=== PATIENT | female | born 1960 | race Caucasian/White ===

== ENCOUNTER 2018-06-13 18:32 | Emergency (ER) | payer MEDICARE ==
[~2018-06-13] VITALS: Ht 167.6 cm; Wt 59.0 kg
[2018-06-13 18:32] VITALS: BP 111/71
[2018-06-13] MEDS ORDERED: HYDROCODONE/APAP 5/325MG 1 EACH TABLET PO ONE (19:00)
[2018-06-13] MEDS ORDERED: HYDROCODONE/APAP 5/325MG 1 EACH TABLET ONE (19:19)
[2018-06-14] MEDS ORDERED: LEVO25TA9 PO (10:24)
[2018-06-14] MEDS ORDERED: GABA-536 PO (10:24)
[2018-06-14] MEDS ORDERED: CLON0.5T12 PO (10:24)
[2018-06-14] MEDS ORDERED: ALBU18HF2 IH (10:24)
[2018-06-14] MEDS ORDERED: BUPR-51 PO (10:24)
[2018-06-14] MEDS ORDERED: BUPR8TAB4 SL (18:59)
== END 2018-06-13 19:53 | disposition home or self-care (01) ==
LOC: ER 18:35
DX: M54.5 Low back pain (principal); Z76.5 Malingerer [conscious simulation]; F31.9 Bipolar disorder, unspecified; E03.9 Hypothyroidism, unspecified; F43.10 Post-traumatic stress disorder, unspecified
CPT/HCPCS: 72131; 99284; A4606; Z7610

== ENCOUNTER 2018-06-13 22:23 | Emergency (ER) | payer MEDICARE ==
[~2018-06-13] VITALS: Ht 167.6 cm; Wt 59.0 kg
--- NOTE | 2018-06-13 22:23 | NUR ---
BBSELF C/C CHRONIC BACK PAIN. PT WALKED WITH STEADY GAIT NOTED TO ER BED 4. PT IS WITH ASSISTED LIVING DIRECTOR STATING "MY BACK PAIN CAUSES SEIZURES" AND "I WAS MISTREATED AND WANT TO BE ABLE TO WALK AGAIN. I AM HOMELESS WITH NO WHERE TO GO". VSS NO ACUTE DISTRESS AT THIS TIME. PT IS NOTED ANXIOUS AND EMOITIONAL. BREATHING PATTERN IS WNL WITH ADEQUATE CHEST RISE/FALL. SKIN WARM AND INTACT. WILL CONTINUE TO MONITOR FOR ANY CHANGES DURING THE SHIFT.
--- NOTE | 2018-06-13 22:24 | NUR ---
ER TEVIN STEWART AT BEDSIDE FOR EVAL
[2018-06-14] MEDS ORDERED: KETOROLAC TROMETHAMINE INJ 30 MG/ML VIAL ONE
[2018-06-14] MEDS ORDERED: LORAZEPAM 1 MG TABLET ONE
[2018-06-14] MEDS ORDERED: KETOROLAC TROMETHAMINE INJ 60 MG/2 ML VIAL IM ONE
[2018-06-14] MEDS ORDERED: LORAZEPAM 1 MG TABLET PO ONE ×2
[2018-06-14] MEDS ORDERED: HYDROCODONE/APAP 5/325MG 1 EACH TABLET ONE
[2018-06-14] MEDS ORDERED: HYDROCODONE/APAP 5/325MG 1 EACH TABLET PO ONE
--- NOTE | 2018-06-14 00:29 | NUR ---
PATIENT GIVEN D/C INSTRUCTIONS AND PATIENT AGEED WITH CARE. HELPED PATIENT BRING ALL BELONGINGS TO THE WAITING ROOM
[2018-06-14 00:30] VITALS: BP 139/74
--- NOTE | 2018-06-14 09:41 | NUR ---
Social service consult requested by security at [facility] stating pt. has been sitting with her luggage in the ED since late last night. SW met with pt. in the EED waiting room. Pt. is a 57 year old who recently moved from [place] to live with a friend. Pt. is unable to live with the friend and is homeless. Pt. is looking for placement. Pt. has a psychiatric diagnosis of Bipolar and was taking medication but has not been taking them. Pt. wants medical stabilization and wants voluntary admission to [facility]. Pt. was assessed by director specialty Alondra Camacho as well.
[2018-06-14] MEDS ORDERED: LEVO25TA9 PO (10:24)
[2018-06-14] MEDS ORDERED: BUPR-51 PO (10:24)
[2018-06-14] MEDS ORDERED: GABA-536 PO (10:24)
[2018-06-14] MEDS ORDERED: CLON0.5T12 PO (10:24)
[2018-06-14] MEDS ORDERED: ALBU18HF2 IH (10:24)
[2018-06-14] MEDS ORDERED: BUPR8TAB4 SL (18:59)
== END 2018-06-14 00:30 | disposition home or self-care (01) ==
LOC: ER 22:26
DX: M54.5 Low back pain (principal); E03.9 Hypothyroidism, unspecified; G89.29 Other chronic pain; F31.9 Bipolar disorder, unspecified; F43.10 Post-traumatic stress disorder, unspecified
CPT/HCPCS: A4606; J1885; Z7610

== ENCOUNTER 2018-06-14 09:41 | Inpatient (IN) | payer MEDICARE ==
[~2018-06-14] VITALS: Ht 167.6 cm; Wt 59.0 kg
--- NOTE | 2018-06-14 09:50 | NUR ---
KAMRAN DURON TRESTLE MAINTERNANCE LABORER FO MEDICAL CLEARANCE PRIOR TO [facility] ADMISSION. NAD NOTED. VSS. SEEN BY MD FOR EVAL. SAFETY AND COMFORT MEASURES PROVIDED. WILL MONITOR.
[2018-06-14 09:55] LABS: BASOPHILS # (AUTO) 0.1 /CMM (0.0-0.2); BASOPHILS % (AUTO) 0.8 % (0.0-2.0); EOSINOPHILS % (AUTO) 0.4 % (0.0-6.0); HEMATOCRIT 41 % (33-45); HEMOGLOBIN 13.8 g/dL (11.5-14.8); LYMPHOCYTES # (AUTO) 1.2 /CMM (0.8-4.8); MEAN CORPUSCULAR HEMOGLOBIN 30 PG (26.0-33.0); MEAN CORPUSCULAR HGB CONC 33 g/dl (31.0-36.0); MEAN CORPUSCULAR VOLUME 88 fL (82-100); MONOCYTES # (AUTO) 0.3 /CMM (0.1-1.30); MONOCYTES % (AUTO) 3.5 % (2.0-12.0); NEUTROPHILS # (AUTO) 7.4 /CMM (1.8-8.9); NEUTROPHILS % (AUTO) 82.3 % (43.0-81.0); PLATELET COUNT (AUTO) 272 /CMM (150-450); RDW COEFFICIENT OF VARIATION 12.8 (11.5-15.0); RED BLOOD CELL COUNT(AUTO) 4.69 MIL/uL (4.0-5.2)
[2018-06-14 10:04] LABS: CALCIUM, SERUM 8.6 mg/dL (8.5-10.1); CREATININE 0.8 mg/dL (0.6-1.3)
[2018-06-14] MEDS ORDERED: GABA-536 PO (10:24)
[2018-06-14] MEDS ORDERED: BUPR-51 PO (10:24)
[2018-06-14] MEDS ORDERED: ALBU18HF2 IH (10:24)
[2018-06-14] MEDS ORDERED: CLON0.5T12 PO (10:24)
[2018-06-14] MEDS ORDERED: LEVO25TA9 PO (10:24)
[2018-06-14] MEDS ORDERED: POTASSIUM CHLORIDE 20 MEQ TAB.PRT.SR PO ONE ×2 (10:29→10:30)
[2018-06-14] MEDS ORDERED: ACETAMINOPHEN 325 MG TABLET PO PRN (12:00)
[2018-06-14] MEDS ORDERED: MAG HYDROX/AL HYDROX/SIMETH 30 ML UDC PO PRN (12:00)
[2018-06-14] MEDS ORDERED: TEMAZEPAM 7.5 MG CAPSULE PO PRN (12:00)
[2018-06-14] MEDS ORDERED: MAGNESIUM HYDROXIDE 30 ML UDC PO PRN (12:00)
[2018-06-14] MEDS: clonazePAM 0.5 MG TABLET PO PRN ×2 (12:15→17:50)
[2018-06-14 13:17] VITALS: BP 116/70
[2018-06-14 16:00] VITALS: BP 126/75
--- NOTE | 2018-06-14 16:24 | NUR ---
[facility]/RN-NOTES ADMITTED 57 YEARS OLD VOLUNTARY FEMALE PATIENT FROM ER. PATIENT IS UNDER THE CARE OF DR. MITCHELL (PSYCHIATRIST) AND PROMISE EMERY( ELECTRICAL INSTRUMENT REPAIRER) BOTH MD WAS MADE AWARE OF THE ADMISSION. DURING THE INTERVIEW WITH THE PATIENT DENIES SI/HI. PATIENT'S RIGHT AND UNIT POLICIES WAS DISCUSS WITH THE PATIENT WITH UNDERSTANDING.PATIENT WAS ORIENTED IN THE UNIT. REFUSED FULL BODY ASSESSMENT AT THIS TIME.CONTRABAND WAS DONE. Addendum: 06/14/18 at 1636 by BLAINE GRANADOS RN PATIENT MOTHER YNES RICO MADE AWARE OF THE ADMISSION.
--- NOTE | 2018-06-14 17:53 | NUR ---
[facility]/RN-NOTES PATIENT SCREAMING AND YELLING IN HER ROOM REQUESTING FOR HER PAIN MEDICATIONS. OFFERED TYLENOL BUT PATIENT STATED" TYLENOL HAS NOTHING TO DO ,GIVE ME MY KLONOPIN IT' BEEN FIVE HOURS ALREADY SINCE I HAVE KLONOPIN". KLONOPIN 1MG P.O GIVEN PRN ORDER. WILL CONT. MONITORING FOR SAFETY AND BEHAVIOR.
--- NOTE | 2018-06-14 18:00 | NUR ---
[facility]/RN-NOTES PATIENT SLEEPING IN HER BED EASILY AROUSES, NO ACUTE DISTRESS NOTED.
--- NOTE | 2018-06-14 18:21 | NUR ---
[facility]/RN-NOTES CALLED [facility] FOR DUCT INSTALLER EMERY TO RECONCILE PATIENT MEDICATIONS STILL AWAITING.
[2018-06-14] MEDS ORDERED: BUPR8TAB4 SL (18:59)
--- NOTE | 2018-06-14 19:09 | NUR ---
[facility]/RN-NOTES PATIENT MEDICATIONS STILL NOT RECONCILE ,STILL AWAITING FOR EMERY CALL BACK. WILL ENDORSE TO INCOMING NURSE TO F/U.
[2018-06-14 20:00] VITALS: BP 108/57
--- NOTE | 2018-06-14 20:35 | NUR ---
[facility]/RN NOTES CALLED [facility] CORRESPONDENCE SCHOOL INSTRUCTOR TO NOTIFY MD THAT PT. MEDICATION RECONCILIATION IS NOT DONE AND PT. IS REQUESTING GABAPENTIN MEDICATION. PER [facility] CORRESPONDENCE SCHOOL INSTRUCTOR SERVICE MD VELEZ DID NOT ANSWER AND WILL BE PAGED. AWAITING CALL BACK. WILL CONTINUE TO MONITOR.
--- NOTE | 2018-06-14 22:06 | NUR ---
[facility]/RN NOTES STILL AWAITING CALL BACK FROM MD VELEZ. CALLED [facility] [employer] LINE CONTROLLER [employer] AGAIN AND NOTIFIED THEM HAVE NOT RECEIVED CALL BACK FROM MD VELEZ, PER [facility] BUSINESS LINE CONTROLLER SERVICE MD VELEZ WAS CALLED AGAIN AND DID NOT ANSWER AND WILL BE PAGED. AWAITING CALL BACK. WILL CONTINUE TO MONITOR.
--- NOTE | 2018-06-14 22:12 | NUR ---
[facility]/RN NOTES CALLED AND NOTIFIED [facility] CR[employer] MAN MD VELEZ PT. MEDICATION RECONCILIATION IS NOT DONE AND PT. IS REQUESTING HER GABAPENTIN MEDICATION. PER MD VELEZ "OK I WILL TAKE CARE OF IT". WILL CONTINUE TO MONITOR.
[2018-06-14] MEDS ORDERED: IPRATROPIUM NEB FS 0.5 MG/2.5 ML AMPUL.NEB NEB PRN (23:30)
[2018-06-14] MEDS ORDERED: ALBUTEROL FS 2.5 MG/3 ML VIAL.NEB NEB PRN (23:30)
--- NOTE | 2018-06-15 01:33 | NUR ---
[facility]/RN NOTES CALLED [facility] REPLANTING MACHINE OPERATOR MD VELEZ TO NOTIFY HIM PT. IS YELLING AND ANGRY REQUESTING HER GABAPENTIN MEDICATION. PER MD VELEZ NEW ORDER: GABAPENTIN 400MG PO X1 NOW. MD VELEZ STATED HE DOESN'T WANT TO ORDER ANY OTHER PAIN MEDICATION BECAUSE THE PT. IS ADDICTED TO [facility]. WILL CARRY OUT ORDER AND ADMINISTER TO PT. GABAPENTIN MEDICATION ORDERED. WILL CONTINUE TO MONITOR.
[2018-06-15] MEDS ORDERED: GABAPENTIN 400 MG CAPSULE PO ONE (01:35)
[2018-06-15] MEDS ORDERED: GABAPENTIN 400 MG CAPSULE ONE (01:36)
[2018-06-15] MEDS: clonazePAM 0.5 MG TABLET PO PRN ×3 (01:38→15:35)
[2018-06-15 07:59] LABS: CHOLESTEROL 127 mg/dL (<200); HDL CHOLESTEROL 59 mg/dL (40-60); LDL 62 mg/dL (0-99); TRIGLYCERIDES 64 mg/dL (30-150)
[2018-06-15 08:00] VITALS: BP 110/67
[2018-06-15 08:07] LABS: ALBUMIN 2.4 g/dL (3.4-5.0); BILIRUBIN,TOTAL 0.6 mg/dL (0.2-1.0); CALCIUM, SERUM 8.5 mg/dL (8.5-10.1); CREATININE 0.8 mg/dL (0.6-1.3); POTASSIUM 3.5 mmol/L (3.5-5.1); TOTAL PROTEIN, SERUM 6.6 g/dL (6.4-8.2)
[2018-06-15] MEDS: NICOTINE PATCH (7MG) 7 MG PATCH.TD24 TD SCH (09:41)
[2018-06-15] MEDS: GABAPENTIN 400 MG CAPSULE PO SCH ×3 (09:41→17:42)
[2018-06-15] MEDS: LEVOTHYROXINE SODIUM 25 MCG TABLET PO SCH (09:41)
[2018-06-15] MEDS: BUPROPION XL 150 MG TAB.ER.24 PO SCH (12:43)
[2018-06-15] MEDS: METHADONE HCL 10 MG TABLET PO SCH (12:44)
[2018-06-15 16:00] VITALS: BP 100/71
--- NOTE | 2018-06-15 19:54 | NUR ---
[facility]/RN OPENING NOTES PATIENT IN BES. RESTING COMFORTABLY IN BED, WILL MONITOR ANY CHANGES AND PROVIDE CARE, SKIN WARM TO TOUCH, RESPIRATIONS EVEN AND UNLABORED, RECEIVED REPORT FROM AM RN FOR DILIP. BED IN LOCK POSITION WILL MONITOR.
[2018-06-15 20:00] VITALS: BP 112/66
[2018-06-16] MEDS: clonazePAM 0.5 MG TABLET PO PRN ×5 (02:05→20:17)
--- NOTE | 2018-06-16 02:12 | NUR ---
[facility]/rn notes PATIENT WOKE UP FROM SLEEP,AND ASK FOR SOME SNACKS AND KLONOPIN NEEDED,MONITORING FOR EFFECTIVENESS, PROVIDED SNACKS
[2018-06-16 08:00] VITALS: BP 112/64
[2018-06-16] MEDS: BUPROPION XL 150 MG TAB.ER.24 PO SCH (08:16)
[2018-06-16] MEDS: NICOTINE PATCH (7MG) 7 MG PATCH.TD24 TD SCH (08:16)
[2018-06-16] MEDS: GABAPENTIN 400 MG CAPSULE PO SCH ×3 (08:16→16:15)
[2018-06-16] MEDS: METHADONE HCL 10 MG TABLET PO SCH (08:16)
[2018-06-16] MEDS: LEVOTHYROXINE SODIUM 25 MCG TABLET PO SCH (08:16)
--- NOTE | 2018-06-16 08:20 | NUR ---
[facility]/RN PATIENT IS IRRITABLE, ANXIOUS AND AGITATED, ADMINISTERED KLONOPIN 1 MG, WILL CONTINUE TO MONITOR.
--- NOTE | 2018-06-16 08:57 | NUR ---
[facility]/RN PT'S RIGHTS ADVOCATE NUMBERS AND THE PHONE PROVIDED PER PT REQUEST.
[2018-06-16] MEDS ORDERED: PETROLATUM,WHITE PACKET 5 GM PACKET TP PRN (11:30)
--- NOTE | 2018-06-16 11:50 | NUR ---
[facility]/RN PATIENT IS ANXIOUS, AGITATED AND VERBALLY AGGRESSIVE. AT NURSES STATION INTERRUPTING DR'S DICTATION AND NON REDIRECTABLE AT THIS TIME. ADMINISTERED KLONOPIN [address] MACKEY. WILL CONTINUE TO MONITOR.
[2018-06-16 12:12] LABS: CALCIUM, SERUM 8.6 mg/dL (8.5-10.1); POTASSIUM 3.2 mmol/L (3.5-5.1)
[2018-06-16] MEDS ORDERED: POTASSIUM CHLORIDE 20 MEQ TAB.PRT.SR PO ONE (14:30)
--- NOTE | 2018-06-16 14:59 | NUR ---
GPS/RN DR DOVER AWARE OF K LEVEL - 3.2, NEW ORDER POTASSIUM CHLORIDDE 40 MEQ PO X 1, ADMINISTERED ORDERED.
[2018-06-16 16:00] VITALS: BP 101/65
[2018-06-16] MEDS ORDERED: METHADONE HCL 5 MG TABLET PO ONE (17:00)
--- NOTE | 2018-06-16 19:40 | NUR ---
[facility] RN INITIAL NOTE RECEIVED SITTING UP IN BED. A/O X3 NOTED WITH ANXIETY AND RESTLESSNESS. NO ACUTE DISTRESS NOTED. NO C/O PAIN NOTED. WILL CONTINUE TO MONITOR.
[2018-06-16 20:04] VITALS: BP 110/82
--- NOTE | 2018-06-16 20:30 | NUR ---
RN NOTE GAVE KLONOPIN 1MG PER PT REQUEST.
--- NOTE | 2018-06-16 22:03 | NUR ---
RN NOTE NOTED WITH INCREASED AGGRESSION AND VERBALLY ABUSIVE. ASKING FOR CELL PHONE. LEAD RADIATION THERAPIST IN THE ROOM MONITORING CELL PHONE USE FOR 10 MINUTES. PT VERBALIZED SHE WAS GOING TO BY TOMORROW.
[2018-06-17] MEDS: clonazePAM 0.5 MG TABLET PO PRN ×3 (03:12→11:38)
[2018-06-17] MEDS: LEVOTHYROXINE SODIUM 25 MCG TABLET PO SCH (07:38)
[2018-06-17 08:03] LABS: CALCIUM, SERUM 8.5 mg/dL (8.5-10.1); CREATININE 0.8 mg/dL (0.6-1.3); POTASSIUM 3.6 mmol/L (3.5-5.1)
[2018-06-17] MEDS: GABAPENTIN 400 MG CAPSULE PO SCH (08:09)
[2018-06-17] MEDS: BUPROPION XL 150 MG TAB.ER.24 PO SCH (08:09)
[2018-06-17] MEDS ORDERED: NICOTINE PATCH (14MG) 14 MG PATCH.TD24 TD SCH (09:00)
[2018-06-17] MEDS ORDERED: METHADONE HCL 10 MG TABLET PO SCH (09:00)
--- NOTE | 2018-06-17 09:00 | NUR ---
INITIAL DISCHARGE NOTE: Pt is on voluntary commitment pt [place]. Pt [place] [facility] [address] [facility] [place] Pt [place] no family to notify.
--- NOTE | 2018-06-17 11:38 | NUR ---
RN NOTE; PT ANXIOUS ,GAVE KLONOPIN 1MG PER PT REQUEST.
--- NOTE | 2018-06-17 12:30 | NUR ---
[facility] SHERIFF'S OFFICER NOTE: PATIENT DISCHARGE TO [facility] [address] [place], BY [facility] IN STABLE CONDITION, DENIES SI/HI, COMPLIANT WITH MEDICATIONS , AMBULATORY , SELF CARE, A/O X4 . VSS STABLE PT REFUSED SKIN ASSESSMENT . MEDICATION PRESCRIPTION EXPLAIN AND GIVEN TO PT . ALL BELONGINGS AND VALUABLES RETURNED TO PT. EXIT CARE DONE , PRINTED, SIGN AND GIVEN TO PT.
--- NOTE | 2018-06-17 13:53 | NUR ---
DISCHARGE NOTE: Pt is homeless and was on voluntary status. Pt discharged at 12:30pm via [facility] to [facility] [address] [facility] [address] and from there stated she would go to [facility] [address] [facility]. Pt has no family to notify. Pts mood was anxious with congruent affect. Pt denied suicidal/homicidal ideations and denied visual/auditory hallucinations. Pt was provided referrals to [facility] [address] [facility] [id number] and [facility] [address] [place] [phone] . The multidisciplinary exitcare form was done, printed, signed, and given to the patient.
== END 2018-06-17 12:30 | disposition home or self-care (01) | DRG 885 ==
LOC: ER 09:43 → GPS 10:42
PROVIDERS: ADMIT Psychiatry & Neurology Psychiatry; ATTEND Nurse Practitioner Acute Care
DX: F31.30 Bipolar disorder, current episode depressed, mild or moderate severity, unspecified (principal); F11.20 Opioid dependence, uncomplicated; E44.0 Moderate protein-calorie malnutrition; E87.6 Hypokalemia; J45.909 Unspecified asthma, uncomplicated; Z59.0 Homelessness; E03.9 Hypothyroidism, unspecified; G89.29 Other chronic pain; Z73.6 Limitation of activities due to disability; F41.9 Anxiety disorder, unspecified; Z68.21 Body mass index [BMI] 21.0-21.9, adult; E88.09 Other disorders of plasma-protein metabolism, not elsewhere classified; F43.10 Post-traumatic stress disorder, unspecified
CPT/HCPCS: 36415; 80048-TC; 80053-TC; 80061-TC; 85025-TC; A4606; G0480; Z7610